=== PATIENT | male | born 1950 ===

== ENCOUNTER → 2019-09-04 19:28 | Outpatient (ROUT) | payer MEDICARE, SELFPAY ==
[2019-09-04 19:34] LABS: INR 2.8 (0.9-1.3); Prothrombin Time 31.9 SECONDS (10.1-12.7)
== END ==
PROVIDERS: Visit Provider Internal Medicine
DX: Z51.81 Encounter for therapeutic drug level monitoring (principal)
CPT/HCPCS: 85610